=== PATIENT | female | born 1965 | race Caucasian/White ===

== ENCOUNTER 2021-09-25 15:28 | Emergency (ER) | payer MEDICARE, MEDICAID, SELFPAY | END 2021-09-25 17:24 | disposition left against medical advice (07) | LOC: HO.ED 16:07 | PROVIDERS: Emergency Provider Emergency Medicine; PCP Internal Medicine | DX: R51.9 Headache, unspecified (principal); M54.2 Cervicalgia ==

== ENCOUNTER 2021-09-25 17:26 | Emergency (ER) | payer OTHER, SELFPAY ==
[2021-09-25 17:30] VITALS: BP 179/84; PULSE 86; RESP 19; TEMP 36.6; O2SAT 99; BMI 34.3
--- NOTE | 2021-09-25 21:40 | ED.NECK ---
HPI - Neck Pain/Injury General Chief Complaint: Neck Pain/Injury Stated Complaint: pain in neck/headaches for 3 days Time Seen by Provider: 09/25/21 21:33 Source: patient Mode of arrival: ambulatory Limitations: no limitations History of Present Illness HPI Narrative: Patient comes to the emergency room complaining of pain on the right side of the neck lateral aspect. Patient states she woke up with pain, throughout the next few days, the pain has been getting worse, patient states that if he moved it hurts a lot. Patient states she does not have headache, but when she moves her neck, hurts the right side of the neck to the shoulder to the upper back. Denies fever chills. Related Data Previous Rx's Medication Instructions Recorded cyclobenzaprine 10 mg tablet 10 mg PO TID PRN #10 tab 09/25/21 Allergies Allergy/AdvReac Type Severity Reaction Status Date / Time No Known Allergies Allergy Unknown Unverified 04/02/20 15:57 Review of Systems Review of Systems: Constitutional : No Weight loss, No Fever, No Chills, No Night Sweats, No Fatigue, No Malaise ENT/Mouth : No Hearing loss, No Ear Pain, No Nasal Congestion, No Sinus Pain, No Hoarseness, No sore throat, No Rhinorrhea, No Swallowing Difficulty Eyes: No Eye Pain, No Swelling, No Redness, No Foreign Body, No Discharge, No Vision Changes Cardiovascular : No Chest Pain, No SOB, No Dyspnea on Exertion, No Orthopnea, No Edema, No Palpitations Respiratory : No Cough, No Sputum, No Wheezing, No Smoke Exposure, No Dyspnea Gastrointestinal : No Nausea, No Vomiting, No Diarrhea, No Constipation, No abdominal Pain, No Hematochezia, No Melena Genitourinary : no irregular bleeding, No Dysuria, No Urinary Frequency, No Hematuria, No Urinary Incontinence, No Urgency, No Flank Pain, No Urinary Flow Changes, No Hesitancy Musculoskeletal : No joint pain, complaining of right-sided neck pain Skin : No Skin Lesions, No rash Neuro : No Weakness, No Numbness, No Paresthesias, No Loss of Consciousness, No Dizziness, No Headache Psych : No Anxiety/Panic, No Depression, No SI/HI/AH/VH, No Social Issues, Heme/Lymph: No Bruising, No Bleeding,No Lymphadenopathy Endocrine : No Polyuria, No Polydipsia, No Temperature Intolerance PMFSH Past Medical History Medical History High cholesterol Kidney stones Pacemaker Social History Social History Advance Directives: No Advance Directives Information Provided: Yes Patient : No Physical Exam Vital Signs: Vital Signs: Last Vital Signs Temp 98 F 09/25/21 17:30 Pulse 86 09/25/21 17:30 Resp 19 09/25/21 17:30 BP 179/84 H 09/25/21 17:30 Pulse Ox 99 09/25/21 17:30 BMI result Body Mass Index 34.3 Const: Other: Appearance: Alert. Oriented X3. No acute distress. Eyes: Pupils equal, round and reactive to light. ENT: Pharynx normal. Neck: No cervical spine tenderness, no palpable step-offs. Patient is able to flex and extend the neck. Patient is unable to turn her neck towards the right. Pain to palpation over the sternocleidomastoid muscle CVS: Normal heart rate and rhythm. Pulses normal. Normal S1 and S2 Respiratory: No respiratory distress. Breath sounds normal. No Wheezing. No rales Abdomen: Soft and nontender. No rigidity. No distention. Skin: Skin warm and dry. Normal skin color. Normal skin turgor. Extremities: No lower extremity edema. No Lacerations. No Rash Neuro: Oriented X 3. No motor deficit. No sensory deficit. Moving all extermities. No slurred speech. CN 2 through 12 grossly intact Course Course Course Narrative: Physical exam of the patient, patient likely has torticollis. Patient has no meningeal signs, meningitis is not suspected. Patient was given 1 dose of IM Toradol and p.o. Valium. Patient will follow-up with her primary care physician Discharge Plan Discharge Clinical Impression: Acute torticollis Patient Disposition: Home, Self-Care Instructions: Spasmodic Torticollis (ED) Additional Instructions: Please follow-up with your primary care physician tomorrow. If you have any worsening or new symptoms, please return to the emergency room or call 911 Prescriptions: New cyclobenzaprine 10 mg tablet 10 mg PO TID PRN (Reason: muscle spasm) Qty: 10 0RF
[2021-09-25] MEDS: Ketorolac Tromethamine 60 MG/2 ML VIAL IM (22:11)
[2021-09-25] MEDS: diazePAM 5 MG TABLET PO (22:11)
== END 2021-09-25 22:33 | disposition home or self-care (01) ==
PROVIDERS: Emergency Provider Emergency Medicine
DX: M43.6 Torticollis (principal); M54.2 Cervicalgia; E78.5 Hyperlipidemia, unspecified; Z95.0 Presence of cardiac pacemaker
CPT/HCPCS: 96372; 99284; J1885

== ENCOUNTER 2022-09-06 20:28 | Emergency (ER) | payer OTHER, SELFPAY ==
[2022-09-06 20:36] VITALS: BP 118/76; PULSE 83; O2SAT 99
[2022-09-06 20:39] VITALS: BP 128/81; PULSE 80; RESP 18; TEMP 36.7; O2SAT 100; BMI 32.5
--- NOTE | 2022-09-06 21:48 | ED_ITS ---
HPI - Abdominal Pain General Chief Complaint: Abdominal Pain Stated Complaint: Stomach pain Time Seen by Provider: 09/06/22 21:32 Mode of arrival: ambulatory Limitations: no limitations History of Present Illness HPI narrative: Patient with no significant past medical history comes here with acute onset of nausea vomiting diarrhea since 15:00 today patient vomited more than 10 times and number of watery diarrhea, no history of any antibiotic or bad food intake no recent travel no fever no chills Related Data Previous Rx's Medication Instructions Recorded cyclobenzaprine 10 mg tablet 10 mg PO TID PRN muscle spasm #10 09/25/21 tabs loperamide 2 mg tablet (Imodium 2 mg PO Q6H PRN loose stool #14 09/07/22 A-D) tabs ondansetron 4 mg disintegrating 4 mg PO Q6-8H PRN nausea and 09/07/22 tablet vomiting #10 tabs Allergies Allergy/AdvReac Type Severity Reaction Status Date / Time No Known Allergies Allergy Unknown Unverified 04/02/20 15:57 Review of Systems Review of Systems Yes all other systems are reviewed and are negative [facility] Past Medical History Medical History High cholesterol Kidney stones Pacemaker Social History Social History Advance Directives: No Advance Directives Information Provided: Yes Physical Exam ED Vital Signs: Vital Signs - 24 hr 09/06/22 20:39 09/06/22 23:59 Temperature 98.0 F 97.6 F Pulse Rate 80 85 Respiratory Rate 18 17 Blood Pressure 128/81 138/91 H Pulse Oximetry 100 95 Oxygen Delivery Method Room Air BMI result Body Mass Index 32.5 Appearance: Alert. Oriented X3. No acute distress. Eyes: No pallor/icterus ENT: Pharynx normal. Oral Mucosa moist Neck: Normal inspection. Neck supple. CVS: Normal heart rate and rhythm. Pulses normal. Respiratory: No respiratory distress. Equal air entry bilateral, no wheezing/rales/rhonchi Abdomen: Soft mild upper abdominal tenderness++ Bowel sounds are present, no mass palpable, no CVA tenderness Skin: Skin warm and dry. Normal skin color. Normal skin turgor. Extremities: No lower extremity edema. No calf tenderness Neuro: Oriented X 3. No motor deficit. No sensory deficit. Medical Decision Making Medical Decision Making MDM Narrative: Patient with gastroenteritis likely viral stable labs able to take p.o. fluids after IV fluids no bowel movement in the ER discharge patient home Lab Data [facility] Lab Attestation statement: I reviewed the patient's lab results. 09/06/22 22:15 09/06/22 22:15 Labs: Lab Results 09/06/22 09/06/22 Range/Units 22:15 22:15 WBC 13.1 H (4.8-10.8) X10*3/uL RBC 5.68 H (4.20-5.50) X10*6/uL Hgb 15.5 (12.0-16.0) g/dl Hct 46.5 (37.0-47.0) % MCV 81.9 (80.0-98.0) fL MCH 27.3 (27.0-33.0) pg MCHC 33.3 (31.0-35.0) g/dl RDW 13.2 (11.0-16.0) % Plt Count 271 (160-400) X10*3/uL MPV 10.6 (9.4-12.3) fL Immature Gran % (Auto) 0.2 (0.0-0.4) % Neut % (Auto) 89.7 H (45-73) % Lymph % (Auto) 4.1 L (20-40) % [place] % (Auto) 5.6 (2-11) % Eos % (Auto) 0.1 (0-4) % Baso % (Auto) 0.3 (0-2) % Lymph # (Auto) 0.5 L (1.2-4.9) X10*3/uL [place] # (Auto) 0.7 (0.1-1.2) X10*3/uL Eos # (Auto) 0.0 (0.0-0.4) X10*3/uL Baso # (Auto) 0.0 (0.0-0.2) X10*3/uL Abs Immat Gran (auto) 0.03 (0.00-0.03) X10*3/uL Absolute Neuts (auto) 11.8 H (2.0-8.3) x10*3/uL Absolute Nucleated RBC 0.000 (0.0-0.012) X10*3/uL Nucleated RBC % (auto) 0.0 (0.0-0.2) /100WBC Sodium 141 (135-145) mmol/L Potassium 3.6 (3.3-5.1) mmol/L Chloride 107 (96-108) mmol/L Carbon Dioxide 21 L (22-29) mmol/L Anion Gap 17 (12-20) BUN 16 (9-16) mg/dL Creatinine 0.81 (0.5-1.4) mg/dL Estim Creat Clear Calc 71.3 Estimated GFR > 60 Random Glucose 144 H (60-115) mg/dL Calcium 9.9 (8.4-10.2) mg/dL Total Bilirubin 1.5 H (0.0-1.0) mg/dL AST 23 (5-31) U/L ALT 32 H (0-31) U/L Alkaline Phosphatase 121 H (39-117) U/L Total Protein 8.2 H (6.5-8.0) g/dL Albumin 4.9 (3.5-5.0) g/dL Lipase 18 (8-78) U/L Medications Administered Discontinued Medications Generic Name Dose Route Start Last Admin Trade Name Freq PRN Reason Stop Dose Admin Sodium Chloride 1,000 mls @ 999 mls/hr 09/06/22 21:49 09/06/22 23:59 Ns IV 09/06/22 22:49 Infused .Q1H1M ONE Infusion Loperamide HCl 4 mg 09/07/22 00:20 09/07/22 00:23 Loperamide Hcl 2 Mg Capsule PO 09/07/22 00:21 4 mg ONCE ONE Administration Ondansetron HCl 4 mg 09/06/22 21:49 09/06/22 22:31 Ondansetron Hcl 4 Mg/2 Ml Vial IVPUSH 09/06/22 21:50 4 mg ONCE ONE Administration Discharge Plan Discharge Clinical Impression: Gastroenteritis Patient Disposition: Home, Self-Care Instructions: Gastroenteritis (ED) Additional Instructions: Drink plenty of fluids Medicine for nausea every 4-6 hours as needed Imodium for severe diarrhea Follow with PCP if not better Prescriptions: New ondansetron 4 mg tablet,disintegrating 4 mg PO Q6-8H PRN (Reason: nausea and vomiting) Qty: 10 0RF loperamide [Imodium A-D] 2 mg tablet 2 mg PO Q6H PRN (Reason: loose stool) Qty: 14 0RF No Action cyclobenzaprine 10 mg tablet 10 mg PO TID PRN (Reason: muscle spasm) Qty: 10 0RF
[2022-09-06 22:29] LABS: MANUAL DIFF FLAG NO
[2022-09-06 22:30] LABS: Basophils Percent Auto 0.3 % (0-2); Eosinophils Percent Auto 0.1 % (0-4); Hematocrit 46.5 % (37.0-47.0); Hemoglobin 15.5 g/dl (12.0-16.0); Imm Gran Abs Auto 0.03 X10*3/uL (0.00-0.03); Imm Gran Pct Auto 0.2 % (0.0-0.4); Lymphocytes Absolute Auto 0.5 X10*3/uL (1.2-4.9); Lymphocytes Percent Auto 4.1 % (20-40); Mean Corpuscular HGB Conc 33.3 g/dl (31.0-35.0); Mean Corpuscular Hemoglobin 27.3 pg (27.0-33.0); Mean Corpuscular Volume 81.9 fL (80.0-98.0); Mean Platelet Volume 10.6 fL (9.4-12.3); Monocytes Absolute Auto 0.7 X10*3/uL (0.1-1.2); Monocytes Percent Auto 5.6 % (2-11); Neutrophils Absolute Auto 11.8 x10*3/uL (2.0-8.3); Neutrophils Percent Auto 89.7 % (45-73); Platelet Count 271 X10*3/uL (160-400); Red Blood Count 5.68 X10*6/uL (4.20-5.50); Red Cell Distribution Width 13.2 % (11.0-16.0); White Blood Count 13.1 X10*3/uL (4.8-10.8)
[2022-09-06] MEDS: ondansetron HCL 4 MG/2 ML VIAL IVPUSH (22:31)
[2022-09-06] MEDS: 0.9 % Sodium Chloride 1,000 ML 999 ML IV (22:31)
[2022-09-06 22:59] LABS: Alanine Aminotransferase 32 U/L (0-31); Albumin Level 4.9 g/dL (3.5-5.0); Alkaline Phosphatase 121 U/L (39-117); Anion Gap 17 (12-20); Aspartate Amino Transferase 23 U/L (5-31); Bilirubin Total 1.5 mg/dL (0.0-1.0); Blood Urea Nitrogen 16 mg/dL (9-16); Calcium 9.9 mg/dL (8.4-10.2); Carbon Dioxide 21 mmol/L (22-29); Chloride 107 mmol/L (96-108); Creatinine Clr Calc Pharmacy 71.3; Estimated Glomerular Filt Rate > 60; Glucose Random 144 mg/dL (60-115); Lipase 18 U/L (8-78); Potassium 3.6 mmol/L (3.3-5.1); Sodium 141 mmol/L (135-145); Total Protein 8.2 g/dL (6.5-8.0)
[2022-09-06 23:59] VITALS: BP 138/91; PULSE 85; RESP 17; TEMP 36.4; O2SAT 95
--- NOTE | 2022-09-06 23:59 | MHC.EDTECH ---
pt ambulated to the restroom and swathi no issues
[2022-09-07] MEDS: Loperamide HCl 2 MG CAPSULE 4 MG PO (00:23)
--- NOTE | 2022-09-07 00:35 | PC.NURSE ---
Pt. reports feeling much better after 1L IVF and zofran. PT. PO challenged with saltines and magda jian and tolerated well. Pt. also given immodium per MAR. Pt. to d/c home.
== END 2022-09-07 00:38 | disposition home or self-care (01) ==
PROVIDERS: Emergency Provider Internal Medicine; PCP Internal Medicine
DX: K52.9 Noninfective gastroenteritis and colitis, unspecified (principal); E78.5 Hyperlipidemia, unspecified; Z95.0 Presence of cardiac pacemaker
CPT/HCPCS: 36415; 80053; 83690; 85025; 96360; 96374; 99284; J2405

== ENCOUNTER 2023-02-01 08:36 | Day surgery (SDC) | payer OTHER, SELFPAY ==
[2023-02-01] VITALS (14 sets, daily range): BP systolic 87–142; BP diastolic 35–80; PULSE 59–72; RESP 15–20; TEMP 35.8–37.2; O2SAT 97–100; BMI 32.4
--- NOTE | 2023-02-01 | ECG_ITS ---
Test Reason : Ho cardiac disease peop Blood Pressure : / mmHG Vent. Rate : 062 BPM Atrial Rate : 062 BPM P-R Int : 118 ms QRS Dur : 154 ms QT Int : 572 ms P-R-T Axes : 048 -32 118 degrees QTc Int : 580 ms Atrial-sensed ventricular-paced rhythm with occasional AV dual-paced complexes Abnormal ECG When compared to the previous EKG of V paced rhythm present Referred By: Sakshi Mujica Electronically Signed By:Ad Desai
--- NOTE | ~2023-02-01 | CT_ITS ---
EXAMINATION: CT ABDOMEN AND PELVIS WITHOUT CONTRAST CLINICAL INFORMATION: Right flank pain with question of stone COMPARISON: CT abdomen pelvis 07/25/2018 TECHNIQUE: Multidetector volumetric imaging was performed from the superior aspect of the liver through the pubic symphysis. Sagittal and coronal reformatted images were obtained on the technologist's workstation. This CT examination was performed using dose optimization techniques as appropriate, variously including the following: *Automated exposure control *Adjustment of mA and/or kV according to patient size (this includes techniques or standardized protocols for targeted exams where dose is matched to indication/reason for exam; i.e. extremities or head) *Use of iterative reconstruction technique DLP: 474 mGy-cm FINDINGS: LUNG BASES: A multilead pacemaker is present. The heart size is normal. No infiltrates, effusions or lung masses are seen. The visualized lung bases are unremarkable. LIVER, GALLBLADDER, AND BILIARY TREE: The liver is prominent in size at 17.5 cm in cephalocaudad dimension but normal in shape and attenuation. No focal hepatic lesion or biliary ductal dilatation is present. The gallbladder is unremarkable with no evidence of radiopaque gallstones, gallbladder wall thickening, or obvious pericholecystic inflammatory changes. PANCREAS: Unremarkable. SPLEEN: Unremarkable. ADRENAL GLANDS: Unremarkable. KIDNEYS AND URETERS: Right : Right-sided nephrolithiasis is present with at least 4 nonobstructing intrarenal calculi present the largest measuring 6 mm. Stone burden in size appears increased when compared to 2019. No right renal masses or hydronephrosis is seen. No right ureteral dilatation is seen and no convincing evidence of ureteral stone is present. There is a tiny punctate calcifications seen near the vagina (2:68) which is not felt to be within the ureter. Left : There is a 5 mm stone present at the left ureteropelvic junction without any significant associated hydronephrosis. There are a few tiny punctate nonobstructing intrarenal calculi present on the left. Again noted is a benign 4.6 cm Bosniak class I cyst which needs no additional imaging or follow-up. No solid renal masses. The left ureter is nondilated. BLADDER: Unremarkable. GASTROINTESTINAL TRACT: There is colonic diverticulosis without diverticulitis. The small and large bowel are unremarkable. The appendix is unremarkable. ABDOMINAL WALL: No significant hernia is appreciated. Small inguinal hernias are present containing only fat. LYMPH NODES: No retroperitoneal lymphadenopathy. VASCULAR: Calcific atherosclerotic plaque present in the aorta and common iliac vessels without aneurysm. PELVIC VISCERA: Unremarkable. OSSEOUS STRUCTURES: Unremarkable. CT/CT abdomen pelvis wo IV con IMPRESSION: 1. Bilateral nephrolithiasis with a 5 mm calculus at the left ureteropelvic junction without any associated hydronephrosis. 2. Other incidental findings as described above. Fleischner guidelines were followed.
--- NOTE | ~2023-02-01 | FL_ITS ---
EXAMINATION: XR FLUOROSCOPY WITH IMAGES CLINICAL INFORMATION: Left retrograde/stent placement, left ureteral stone. COMPARISON: None available. TECHNIQUE: Fluoroscopy Supervised By: Dr. Lukas Estrella. Fluoroscopy Time: 21.2 seconds. Cumulative Dose: 7.35 mGy. DAP: None Images: 1. FINDINGS: Single AP view of the pelvis reveals right ureteral stent in place with its distal end in the bladder and minimal contrast in the right aspect of urinary bladder. Visualized bones are grossly unremarkable. FL/FL guidance in OR IMPRESSION: Fluoroscopy was provided to referring physician for a right ureteral stent placement.
[2023-02-01 09:01] LABS: Basophils Percent Auto 0.6 % (0-2); Eosinophils Absolute Auto 0.1 X10*3/uL (0.0-0.4); Eosinophils Percent Auto 1.5 % (0-4); Hemoglobin 12.5 g/dl (12.0-16.0); Imm Gran Abs Auto 0.02 X10*3/uL (0.00-0.03); Imm Gran Pct Auto 0.3 % (0.0-0.4); Lymphocytes Absolute Auto 1.7 X10*3/uL (1.2-4.9); Lymphocytes Percent Auto 24.6 % (20-40); Mean Corpuscular HGB Conc 32.9 g/dl (31.0-35.0); Mean Corpuscular Hemoglobin 27.6 pg (27.0-33.0); Mean Corpuscular Volume 83.9 fL (80.0-98.0); Mean Platelet Volume 10.4 fL (9.4-12.3); Monocytes Absolute Auto 0.5 X10*3/uL (0.1-1.2); Monocytes Percent Auto 7.9 % (2-11); Neutrophils Absolute Auto 4.4 x10*3/uL (2.0-8.3); Neutrophils Percent Auto 65.1 % (45-73); Platelet Count 232 X10*3/uL (160-400); Red Blood Count 4.53 X10*6/uL (4.20-5.50); White Blood Count 6.7 X10*3/uL (4.8-10.8)
[2023-02-01 09:02] LABS: Appearance Urine Cloudy; Color Urine Yellow; Glucose Urine UA Negative (Negative); Leukocyte Esterase Urine Negative (Negative); MANUAL DIFF FLAG NO; Nitrite Urine Negative (Negative); PH 5.5 (5.0-9.0); Specific Gravity - Urine >= 1.030 (1.005-1.025); Urine Blood Negative (Negative); Urine Ketones Trace mg/dL (Negative); Urine Protein Trace mg/dL (Neg-Trace)
[2023-02-01 09:04] LABS: Bacteria Urine 1+ (None Seen); RBC Urine 0-2 /HPF (0-2); Squamous Epithelial Cell Urine >20 /HPF (0-2); WBC Urine 0-5 /HPF (0-5)
[2023-02-01 09:26] LABS: Alanine Aminotransferase 28 U/L (0-31); Albumin Level 4.1 g/dL (3.5-5.0); Alkaline Phosphatase 100 U/L (39-117); Anion Gap 14 (12-20); Aspartate Amino Transferase 20 U/L (5-31); Bilirubin Total 0.5 mg/dL (0.0-1.0); Blood Urea Nitrogen 10 mg/dL (9-16); Calcium 9.2 mg/dL (8.4-10.2); Carbon Dioxide 24 mmol/L (22-29); Chloride 107 mmol/L (96-108); Estimated Glomerular Filt Rate > 60; Glucose Random 122 mg/dL (60-115); Potassium 3.8 mmol/L (3.3-5.1); Sodium 141 mmol/L (135-145); Total Protein 7.4 g/dL (6.5-8.0)
--- NOTE | 2023-02-01 09:32 | ED_ITS ---
HPI - General Adult General Chief complaint: Abdominal Pain Stated complaint: Kidney Stones Time Seen by Provider: 02/01/23 09:27 Source: patient Mode of arrival: ambulatory Limitations: no limitations History of Present Illness HPI narrative: Patient is a 57-year-old female with a past medical history of kidney stones a few years ago presenting today with concerns that she may have kidney stones again. Patient reports that yesterday morning she started feeling some right- sided flank pain. Patient reports that she took Tylenol and it had minimal effect. Patient reports that the pain is constant. Patient denies any urinary symptoms. Patient denies headache, vision changes, fever, chills, nausea, vomiting, numbness, tingling, urinary symptoms, abnormal vaginal discharge. Related Data Previous Rx's Medication Instructions Recorded cyclobenzaprine 10 mg tablet 10 mg PO TID PRN muscle spasm #10 09/25/21 tabs loperamide 2 mg tablet (Imodium 2 mg PO Q6H PRN loose stool #14 09/07/22 A-D) tabs ondansetron 4 mg disintegrating 4 mg PO Q6-8H PRN nausea and 09/07/22 tablet vomiting #10 tabs Allergies Allergy/AdvReac Type Severity Reaction Status Date / Time No Known Allergies Allergy Unknown Verified 02/01/23 08:43 Review of Systems Review of Systems: Constitutional : No Weight loss, No Fever, No Chills, No Fatigue, No Malaise ENT/Mouth : No sore throat, No Rhinorrhea Eyes: No Eye Pain, No Swelling, No Redness Cardiovascular : No Chest Pain, No SOB, No Dyspnea on Exertion, No Orthopnea, No Edema, No Palpitations Respiratory : No Cough, No Sputum, No Wheezing Gastrointestinal : No Nausea, No Vomiting, No Diarrhea, No Constipation, No abdominal Pain, No Hematochezia, No Melena Genitourinary : No Dysuria, No Urinary Frequency, No Hematuria, Musculoskeletal : No joint pain, No Myalgias, No Joint Swelling +back pain Skin : No Skin Lesions, No rash Neuro : No Weakness, No Numbness, No Dizziness, No Headache All other systems reviewed and are negative Yes all other systems are reviewed and are negative PMFSH Past Medical History Attestation statement: The following information was validated with the patient. Source: old records reviewed and nursing notes reviewed Medical History High cholesterol Kidney stones Pacemaker Social History Social History Alcohol intake: never Smoked in Last 30 Days: No Use of substances other than those prescribed or required for medical reasons: No Advance Directives: No Advance Directives Information Provided: No Physical Exam ED Vital Signs: Vital Signs - 24 hr 02/01/23 08:40 02/01/23 11:38 02/01/23 15:03 Temperature 98.9 F 97.9 F Pulse Rate 61 59 Respiratory Rate 15 16 16 Blood Pressure 138/80 142/78 H Pulse Oximetry 99 99 Oxygen Delivery Method Room Air Room Air BMI result Body Mass Index 32.4 vss Appearance: Alert.? Oriented X3.? No acute distress.? Head: Normocephalic, atraumatic, no step-offs or deformities Eyes: Pupils equal, round and reactive to light.? Neck: Normal inspection.? Neck supple.? CVS: Normal heart rate and rhythm.? Pulses normal.? Respiratory: No respiratory distress.? Breath sounds normal.? Abdomen: Soft and nontender.? Skin: Skin warm and dry.? Normal skin color.? Normal skin turgor.? Extremities: No lower extremity edema.? No calf ttp. 5/5 strength to bilateral upper and lower extremities Back: No midline tenderness, no C-spine tenderness, full range of motion, + right sided CVA tenderness, +right sided flank ttp Neuro: Oriented X 3.? No motor deficit.? No sensory deficit. CN 2-12 intact Course Reevaluation(s) Reevaluation #1: CBC within normal limits. Chemistry unremarkable. UA clean. Bilateral 5 mm stones nonobstructing no hydronephrosis noted, urology consulted which will come down to see patient. Time: 11:00 Reevaluation #2: Patient's pain well controlled still waiting for urology to see patient. Time: 14:20 Reevaluation #3: Urology reviewed the scans the stone appears to be obstructing, they will admit to their service into a stent. Patient aware. At this time will admit. Time: 15:09 Medications Administered Discontinued Medications Generic Name Dose Route Start Last Admin Trade Name Freq PRN Reason Stop Dose Admin Sodium Chloride 1,000 mls @ 999 mls/hr 02/01/23 09:45 02/01/23 11:17 Ns IV 02/01/23 10:45 Infused .Q1H1M TESSY Infusion Ketorolac Tromethamine 30 mg 02/01/23 09:45 02/01/23 09:57 Ketorolac Tromethamine 15 Mg/Ml Vial IVPUSH 02/01/23 09:46 30 mg ONCE ONE Administration Morphine Sulfate 4 mg 02/01/23 14:20 02/01/23 15:03 Morphine Sulfate 4 Mg/Ml Cartridge IVPUSH 02/01/23 14:21 4 mg ONCE ONE Administration Protocol Prednisone 20 mg 02/01/23 10:54 02/01/23 11:36 Prednisone 20 Mg Tablet PO 02/01/23 10:55 20 mg ONCE ONE Administration Tamsulosin HCl 0.4 mg 02/01/23 10:54 02/01/23 11:36 Tamsulosin Hcl 0.4 Mg Capsule PO 02/01/23 10:55 0.4 mg ONCE ONE Administration Medical Decision Making Medical Decision Making [facility] Narrative: 0935 57-year-old female presenting with right-sided flank pain. Physical exam pertinent for right-sided CVA tenderness and right-sided flank tenderness to palpation Likely kidney stones. Will rule out pyelonephritis, sciatica, UTI, lumbago. No signs of cauda equina or cord compression at this time. No red flag symptoms. Plan: labs, imaging Differential Diagnosis Differential Diagnoses: The differential diagnosis associated with the pre sentation includes Likely kidney stones. Will rule out pyelonephritis, sciatica, UTI, lumbago. No signs of cauda equina or cord compression at this time. No red flag symptoms. Admission/Observation Consideration of admission/observation: Escalation of care including admission/observation considered Not likely Lab Data [facility] Lab Attestation statement: I reviewed the patient's lab results. 02/01/23 08:54 02/01/23 08:54 Labs: Lab Results 02/01/23 02/01/23 02/01/23 Range/Units 08:54 08:54 08:54 WBC 6.7 (4.8-10.8) X10*3/uL RBC 4.53 D (4.20-5.50) X10*6/uL Hgb 12.5 (12.0-16.0) g/dl Hct 38.0 (37.0-47.0) % MCV 83.9 (80.0-98.0) fL MCH 27.6 (27.0-33.0) pg MCHC 32.9 (31.0-35.0) g/dl RDW 13.0 (11.0-16.0) % Plt Count 232 (160-400) X10*3/uL MPV 10.4 (9.4-12.3) fL Immature Gran % (Auto) 0.3 (0.0-0.4) % Neut % (Auto) 65.1 (45-73) % Lymph % (Auto) 24.6 (20-40) % [place] % (Auto) 7.9 (2-11) % Eos % (Auto) 1.5 (0-4) % Baso % (Auto) 0.6 (0-2) % Lymph # (Auto) 1.7 (1.2-4.9) X10*3/uL [place] # (Auto) 0.5 (0.1-1.2) X10*3/uL Eos # (Auto) 0.1 (0.0-0.4) X10*3/uL Baso # (Auto) 0.0 (0.0-0.2) X10*3/uL Abs Immat Gran (auto) 0.02 (0.00-0.03) X10*3/uL Absolute Neuts (auto) 4.4 (2.0-8.3) x10*3/uL Absolute Nucleated RBC 0.000 (0.0-0.012) X10*3/uL Nucleated RBC % (auto) 0.0 (0.0-0.2) /100WBC Sodium 141 (135-145) mmol/L Potassium 3.8 (3.3-5.1) mmol/L Chloride 107 (96-108) mmol/L Carbon Dioxide 24 (22-29) mmol/L Anion Gap 14 (12-20) BUN 10 (9-16) mg/dL Creatinine 0.80 (0.5-1.4) mg/dL Estim Creat Clear Calc 72.0 Estimated GFR > 60 Random Glucose 122 H (60-115) mg/dL Calcium 9.2 D (8.4-10.2) mg/dL Total Bilirubin 0.5 (0.0-1.0) mg/dL AST 20 (5-31) U/L ALT 28 (0-31) U/L Alkaline Phosphatase 100 (39-117) U/L Total Protein 7.4 (6.5-8.0) g/dL Albumin 4.1 (3.5-5.0) g/dL Urine Color Yellow Urine Appearance Cloudy Urine pH 5.5 (5.0-9.0) Ur Specific [employer] >= 1.030 H (1.005-1.025) Urine Protein Trace (Neg-Trace) mg/dL Urine Glucose (UA) Negative (Negative) mg/dL Urine Ketones Trace (Negative) mg/dL Urine Blood Negative (Negative) Urine Nitrite Negative (Negative) Ur Leukocyte Esterase Negative (Negative) Urine RBC 0-2 (0-2) /HPF Urine WBC 0-5 (0-5) /HPF Ur Squamous Epith Cells >20 (0-2) /HPF Urine Bacteria 1+ (None Seen) Hyaline Casts 3-5 (0-2) /LPF Independent Interpretation I performed an independent interpretation of an: CT Scan (CT/CT abdomen pelvis wo IV con IMPRESSION: 1. Bilateral nephrolithiasis with a 5 mm calculus at the left ureteropelvic junction without any associated hydronephrosis. 2. Other incidental findings as described above. Fleischner guidelines were followed.) Radiology Impression Discussion of test interpretation with radiology: I have reviewed the radiologist's reading. Core Measures AMI core measures followed: Yes Measure exclusions: not indicated Critical Care Time Critical Care Time Critical Care Time: Yes Total Critical Care Time: 35 Attestation: I attest to this time spent taking care of the patient, obtaining history, physical, reviewing labs, imaging, speaking to my attending, speaking to specialist. Discharge Plan Discharge Clinical Impression: Bilateral kidney stones Patient Disposition: Still a Patient Prescriptions: No Action cyclobenzaprine 10 mg tablet 10 mg PO TID PRN (Reason: muscle spasm) Qty: 10 0RF ondansetron 4 mg tablet,disintegrating 4 mg PO Q6-8H PRN (Reason: nausea and vomiting) Qty: 10 0RF loperamide [Imodium A-D] 2 mg tablet 2 mg PO Q6H PRN (Reason: loose stool) Qty: 14 0RF
[2023-02-01] MEDS: 0.9 % Sodium Chloride 1,000 ML 999 ML IV ×2 (09:56→16:38)
[2023-02-01] MEDS: Ketorolac Tromethamine 15 MG/ML VIAL 30 MG IVPUSH (09:57)
[2023-02-01] MEDS: Tamsulosin HCL 0.4 MG CAPSULE PO (11:36)
[2023-02-01] MEDS: predniSONE 20 MG TABLET PO (11:36)
[2023-02-01] MEDS: Morphine Sulfate 4 MG/ML CARTRIDGE IVPUSH (15:03)
--- NOTE | 2023-02-01 15:41 | PHA.MEDREC ---
Pharmacy Consult ? Medication Reconciliation Pharmacy has completed the medication reconciliation. Pt no longer uses flovent
--- NOTE | 2023-02-01 16:36 | HO.ANESPROP2 ---
HPI - Anesthesia Eval Consult details Narrative: 57 yo female patient for Cysto, Retro and stent placement Patient with pacemaker. Placed @ [facility] 02/2019. ?Indication. Follows up with bundle tier and labeler Dr Wagoner at [facility]. Unsure when last seen. States seeing in April: EF 35-40%Mild Concentric LVH. Impaired relaxation. LA septal aneurysm. No more recent cardiac studies PMFSH Active Problems Active Problems: All Active Problems (Updated 02/01/23 @ 13:45 by SERENITY Weller) Bilateral kidney stones (Acute) Past Medical History Medical History (Updated 02/01/23 @ 17:26 by Geno Chin MD) Anxiety and depression Asthma Bilateral nephrolithiasis H/O chest pain High cholesterol LBBB (left bundle branch block) Pacemaker Family History Family history of problems with anesthesia: No Surgical History Surgical History (Updated 02/01/23 @ 16:53 by Geno Chin MD) H/O hydronephrosis H/O lithotripsy H/O: History of bilateral tubal ligation History of endometrial ablation History of hysteroscopy History of lithotripsy History of Problems with Anesthesia: No Social History Social History Alcohol intake: never Smoked in Last 30 Days: No Use of substances other than those prescribed or required for medical reasons: No Advance Directives: No Advance Directives Information Provided: No Meds Allergies Allergy/AdvReac Type Severity Reaction Status Date / Time No Known Allergies Allergy Unknown Verified 02/01/23 08:43 Active Medications: Current Medications Pharmacy Consult (Consult Rx Perform Med Rec) 1 each MISCELLANE ONCE PRN PRN Reason: Consult order Home Medications Medication Instructions Recorded Confirmed Last Taken Type albuterol sulfate 90 mcg/actuation 2 puff inhalation Q4H PRN wheezing 02/01/23 02/01/23 01/30/23 History aerosol inhaler atorvastatin 20 mg tablet 20 mg PO BEDTIME 02/01/23 02/01/23 01/31/23 History fluoxetine 20 mg capsule 40 mg PO BEDTIME 02/01/23 02/01/23 01/31/23 History hydroxyzine HCl 25 mg tablet 25 mg PO BID PRN anxiety 02/01/23 02/01/23 01/31/23 History metoprolol succinate 100 mg 100 mg PO DAILY 02/01/23 02/01/23 02/01/23 History tablet,extended release 24 hr sacubitril 49 mg-valsartan 51 mg 1 tab PO BID 02/01/23 02/01/23 02/01/23 History tablet (Entresto) spironolactone 25 mg tablet 25 mg PO DAILY 02/01/23 02/01/23 02/01/23 History zolpidem 5 mg tablet 5 mg PO BEDTIME PRN Sleep 02/01/23 02/01/23 01/31/23 History Exam Exam Date and Time: February 01, 2023 1636 Height,Weight and Vital Signs: Height 5 ft Weight 75.296 kg Last Vital Signs Temp 97.9 F 02/01/23 11:38 Pulse 59 02/01/23 11:38 Resp 16 02/01/23 15:03 BP 142/78 H 02/01/23 11:38 Pulse Ox 99 02/01/23 11:38 O2 Del Method Room Air 02/01/23 11:38 Vital Signs Temp Pulse Resp BP Pulse Ox O2 Del Method 02/01/23 16:50 96.5 F L 60 16 120/65 97 Room Air 02/01/23 15:03 16 02/01/23 11:38 97.9 F 59 16 142/78 H 99 Room Air 02/01/23 08:40 98.9 F 61 15 138/80 99 Room Air Pertinent Lab Results Pertinent Lab Results: Laboratory Tests 02/01/23 02/01/23 02/01/23 08:54 08:54 08:54 WBC 6.7 RBC 4.53 D Hgb 12.5 Hct 38.0 MCV 83.9 MCH 27.6 MCHC 32.9 RDW 13.0 Plt Count 232 MPV 10.4 Immature Gran % (Auto) 0.3 Neut % (Auto) 65.1 Lymph % (Auto) 24.6 [place] % (Auto) 7.9 Eos % (Auto) 1.5 Baso % (Auto) 0.6 Lymph # (Auto) 1.7 [place] # (Auto) 0.5 Eos # (Auto) 0.1 Baso # (Auto) 0.0 Abs Immat Gran (auto) 0.02 Absolute Neuts (auto) 4.4 Absolute Nucleated RBC 0.000 Nucleated RBC % (auto) 0.0 Sodium 141 Potassium 3.8 Chloride 107 Carbon Dioxide 24 Anion Gap 14 BUN 10 Creatinine 0.80 Estim Creat Clear Calc 72.0 Estimated GFR > 60 Random Glucose 122 H Calcium 9.2 D Total Bilirubin 0.5 AST 20 ALT 28 Alkaline Phosphatase 100 Total Protein 7.4 Albumin 4.1 Urine Color Yellow Urine Appearance Cloudy Urine pH 5.5 Ur Specific [place] >= 1.030 H Urine Protein Trace Urine Glucose (UA) Negative Urine Ketones Trace Urine Blood Negative Urine Nitrite Negative Ur Leukocyte Esterase Negative Urine RBC 0-2 Urine WBC 0-5 Ur Squamous Epith Cells >20 Urine Bacteria 1+ Hyaline Casts 3-5 Airway Mallampati Class: II TM Dist: >3cm Neck ROM: Full Loose/Missing/Broken Teeth: Yes (Some missing teeth. denies broken or loose teeth) Heart: RRR. V Paced on EKG Lungs: CTAB Assessment and Plan Assessment Anesthesia Assessment: Anesthesia Plan Discussed and Chart Reviewed Final Anesthetic Review Family History of Problems with Anesthesia: No History of Problems with Anesthesia: No NPO: Yes ASA Class: IV and Emergency Final Preanesthetic Review: No Changes in Pt Med Stat, Meds/Allgs Chart Reviewed, Consent Obtained/Reviewed and Anes Risks/Benef Reviewed Patient Risk: High Procedure Risk: Intermediate Assessment/Block/Sedation in SS: Assess/Block/Sedation-SS Anesthetic Plan Anesthetic Plan: GA Disposition: Standard PACU and Inp. Admit - Standard Bed
[2023-02-01] MEDS: ondansetron HCL 4 MG/2 ML VIAL IVPUSH (16:38)
[2023-02-01] MEDS: Metoclopramide HCl 10 MG/2 ML VIAL IVPUSH (17:04)
--- NOTE | 2023-02-01 17:22 | P.CNUR_ITS ---
History of Present Illness Consult details Consult date: 02/01/23 Narrative: CC: Right-sided flank pain 57-year-old female Recurrent stone former Right-sided flank pain starting yesterday morning Minimal impact with oral Tylenol or Advil Constant pain with nausea and vomiting Creatinine 0.8, calcium 9.2 CT scan with bilateral stones: Small stone distal left ureter, 4 stones on right side up to 6 mm She reports pain on the right side Recommend cystoscopy, right retrograde, right stent placement Review of Systems Constitutional: Constitutional: Reports as per HPI and Reports no additional constitutional complaints Cardiovascular: Cardiovascular: Reports as per HPI and Reports no additional cardiovascular complaints Respiratory: Respiratory: Reports as per HPI and Reports no additional respiratory complaints Gastrointestinal: Gastrointestinal: Reports as per HPI and Reports no additional gastrointestinal complaints Genitourinary: Genitourinary: Reports as per HPI Musculoskeletal: Musculoskeletal: Reports no additional musculoskeletal complaints and Reports as per HPI Neurologic: Reports system reviewed and no additional complaints, except as documented and Reports as per HPI PMF Past Medical History Medical History (Updated 02/01/23 @ 16:48 by Geno Chin MD) Anxiety and depression Asthma Bilateral nephrolithiasis H/O chest pain High cholesterol LBBB (left bundle branch block) Pacemaker Surgical History Surgical History (Updated 02/01/23 @ 16:53 by Geno Chin MD) H/O hydronephrosis H/O lithotripsy H/O: History of bilateral tubal ligation History of endometrial ablation History of hysteroscopy History of lithotripsy Social History Social History Alcohol intake: never Patient Tobacco Use Status: Former Tobacco user Quit Date: 2018 Smoked in Last 30 Days: No Use of substances other than those prescribed or required for medical reasons: No Are you DNR?: No Advance Directives: No Advance Directives Information Provided: No Meds Allergies Allergy/AdvReac Type Severity Reaction Status Date / Time No Known Allergies Allergy Unknown Verified 02/01/23 08:43 Active Medications: Current Medications Albuterol Sulfate (Albuterol Sulfate (0.083%) 2.5 Mg/3 Ml Vial.Neb) 2.5 mg INHALE ONCE PRN PRN Reason: Shortness of Breath/Wheezing Lactated Ringer's (Lr) 1,000 mls @ 100 mls/hr IVCONT .Q10H [facility] Pharmacy Consult (Consult Rx Perform Med Rec) 1 each MISCELLANE ONCE PRN PRN Reason: Consult order Home Medications Medication Instructions Recorded Confirmed Last Taken Type albuterol sulfate 90 mcg/actuation 2 puff inhalation Q4H PRN wheezing 02/01/23 02/01/23 01/30/23 History aerosol inhaler atorvastatin 20 mg tablet 20 mg PO BEDTIME 02/01/23 02/01/23 01/31/23 History fluoxetine 20 mg capsule 40 mg PO BEDTIME 02/01/23 02/01/23 01/31/23 History hydroxyzine HCl 25 mg tablet 25 mg PO BID PRN anxiety 02/01/23 02/01/23 01/31/23 History metoprolol succinate 100 mg 100 mg PO DAILY 02/01/23 02/01/23 02/01/23 History tablet,extended release 24 hr sacubitril 49 mg-valsartan 51 mg 1 tab PO BID 02/01/23 02/01/23 02/01/23 History tablet (Entresto) spironolactone 25 mg tablet 25 mg PO DAILY 02/01/23 02/01/23 02/01/23 History zolpidem 5 mg tablet 5 mg PO BEDTIME PRN Sleep 02/01/23 02/01/23 01/31/23 History Physical Exam Vital Signs: Vital Signs: Last Vital Signs Temp 96.5 F L 02/01/23 16:50 Pulse 60 02/01/23 16:50 Resp 16 02/01/23 16:50 BP 120/65 02/01/23 16:50 Pulse Ox 97 02/01/23 16:50 O2 Del Method Room Air 02/01/23 16:50 BMI result Body Mass Index 32.4 Const: General: cooperative, healthy appearing, comfortable and no acute distress Orientation/consciousness: patient oriented x3 HEENT: Face and sinus: Yes normal facial exam Mouth: moist mucous membranes Neck: Neck: Yes normal visual inspection, Yes full ROM and Yes trachea midline Chest: Chest palpation & inspection: normal inspection of the chest Resp: Effort & Inspection: normal respiratory effort, able to speak in complete sentences and no respiratory distress GI: Inspection: Yes normal to inspection Back/Spine/Pelvis: Cervical Spine: normal cervical lordosis Thoracic/Lumbar Spine: thoracic and lumbar spine normal to inspection Skin: General skin exam: no rashes or lesions noted Neuro: General: patient oriented x3, tone normal and moves all extremities Extrem: General: Yes normal to inspection and Yes capillary refill normal Results Labs 02/01/23 08:54 02/01/23 08:54 Labs: Abnormal lab results 02/01/23 02/01/23 Range/Units 08:54 08:54 Random Glucose 122 H (60-115) mg/dL Ur Specific [place] >= 1.030 H (1.005-1.025) Short CBC 02/01/23 Range/Units 08:54 WBC 6.7 (4.8-10.8) X10*3/uL Hgb 12.5 (12.0-16.0) g/dl Hct 38.0 (37.0-47.0) % Plt Count 232 (160-400) X10*3/uL BMP 02/01/23 08:54 Sodium 141 Potassium 3.8 Chloride 107 Carbon Dioxide 24 BUN 10 Creatinine 0.80 Calcium 9.2 D Liver Function 02/01/23 Range/Units 08:54 Total Bilirubin 0.5 (0.0-1.0) mg/dL AST 20 (5-31) U/L ALT 28 (0-31) U/L Alkaline Phosphatase 100 (39-117) U/L Albumin 4.1 (3.5-5.0) g/dL Urine 02/01/23 Range/Units 08:54 Urine Color Yellow Urine Appearance Cloudy Urine pH 5.5 (5.0-9.0) Ur Specific [place] >= 1.030 H (1.005-1.025) Urine Protein Trace (Neg-Trace) mg/dL Urine Glucose (UA) Negative (Negative) mg/dL All other labs normal. Assessment and Plan (1) Bilateral nephrolithiasis: Status: Acute Plan Risks, benefits and alternatives to therapy were discussed. These include but are not limited to infection, bleeding, damage to local organs and tissues, need for further interventions. Anesthetic risks regarding cardiac arrhythmia, blood clots, and potential mortality were discussed. The patient understands the typical recovery time and the outpatient nature of the procedure. After consideration of these risks the patient gives full informed consent and they wish to move ahead with the procedure. Cystoscopy, right retrograde, right stent placement Time Spent With Patient Time: Total time managing care of this patient today ____ minutes. Procedures Date of Service Date of Service: 02/01/23
--- NOTE | 2023-02-01 17:25 | MHC.SHP ---
Pre-Procedural Eval Section A Date of Service: 02/01/23 The patient is an INPATIENT: No Changes since office visit: No Cold of Flu in the past 2 weeks, No New Medical Problems, No Changes in Medication and No Patient answered all questions The History & Physical has been completed within 30 days and I have reviewed it.: Yes Section B Chief Complaint: Kidney Stones Allergies: Allergies Allergy/AdvReac Type Severity Reaction Status Date / Time No Known Allergies Allergy Unknown Verified 02/01/23 08:43 Plan Diagnosis/Plan: Unchanged (Cysto, right retrograde, right stent placement) I have reviewed the history and physical and performed a pertinent physical examination on my patient. No changes have occurred unless specified. Time Spent With Patient Time: Total time managing care of this patient today ____ minutes.
--- NOTE | 2023-02-01 18:20 | W.PM.OPN ---
Operative Note Operative Note Date of Service: 02/01/23 Narrative: PreOperative Diagnosis: Right flank pain with mild hydronephrosis Post Operative Diagnosis: Above Procedure: Cystoscopy, right retrograde, right stent placement Surgeon: Dr Lukas Estrella Anesthesia: Sedation Indications for procedure: Persistent right flank pain Procedure: After informed consent was verified the patient was brought to the operating room and placed in a supine position. Anesthesia was administered per protocol. The patient was placed in modified dorsal lithotomy position and prepped and draped in a sterile fashion. A safety pause time-out was performed. Laterality of procedure and antibiotics were confirmed, appropriate imaging was available A 22 S[place] cystoscope was introduced per urethra. No abnormality was noted of urethra or bladder. Both ureteric orifices were seen in a normal position. The right ureter was cannulated with an open ended catheter and a retrograde examination was performed. Narrowing at UPJ seen . A Sensor guidewire was placed under fluoroscopy and a good coil was seen within the renal pelvis. A 6 [place] by 24 cm double J stent was advanced over the wire and up to the level of the renal pelvis under fluoroscopic and direct visualization. The stent was seen with appropriate coil within the renal pelvis and in the bladder after deployment. The patient tolerated the procedure well and was transferred in a stable condition to the recovery area. Pathology: Drains: As above
--- NOTE | 2023-02-01 18:23 | HO.ANESPROP2 ---
[facility] Active Problems Active Problems: All Active Problems (Updated 02/01/23 @ 17:26 by Geno Chin MD) LBBB (left bundle branch block) (Acute) Bilateral nephrolithiasis (Acute) Bilateral kidney stones (Acute) Past Medical History Medical History (Updated 02/01/23 @ 17:26 by Geno Chin MD) Anxiety and depression Asthma Bilateral nephrolithiasis H/O chest pain High cholesterol LBBB (left bundle branch block) Pacemaker Family History Family history of problems with anesthesia: No Surgical History Surgical History (Updated 02/01/23 @ 16:53 by Geno Chin MD) H/O hydronephrosis H/O lithotripsy H/O: History of bilateral tubal ligation History of endometrial ablation History of hysteroscopy History of lithotripsy History of Problems with Anesthesia: No Social History Social History Alcohol intake: never Patient Tobacco Use Status: Former Tobacco user Quit Date: 2018 Smoked in Last 30 Days: No Use of substances other than those prescribed or required for medical reasons: No Are you DNR?: No Advance Directives: No Advance Directives Information Provided: No Meds Allergies Allergy/AdvReac Type Severity Reaction Status Date / Time No Known Allergies Allergy Unknown Verified 02/01/23 08:43 Active Medications: Current Medications Albuterol Sulfate (Albuterol Sulfate (0.083%) 2.5 Mg/3 Ml Vial.Neb) 2.5 mg INHALE ONCE PRN PRN Reason: Shortness of Breath/Wheezing Lactated Ringer's (Lr) 1,000 mls @ 100 mls/hr IVCONT .Q10H [facility] Pharmacy Consult (Consult Rx Perform Med Rec) 1 each MISCELLANE ONCE PRN PRN Reason: Consult order Tramadol HCl (Tramadol Hcl 50 Mg Tablet) 50 mg PO Q6H PRN PRN Reason: Pain, Moderate(Pain Scale 4-6) Home Medications Medication Instructions Recorded Confirmed Last Taken Type albuterol sulfate 90 mcg/actuation 2 puff inhalation Q4H PRN wheezing 02/01/23 02/01/23 01/30/23 History aerosol inhaler atorvastatin 20 mg tablet 20 mg PO BEDTIME 02/01/23 02/01/23 01/31/23 History fluoxetine 20 mg capsule 40 mg PO BEDTIME 02/01/23 02/01/23 01/31/23 History hydroxyzine HCl 25 mg tablet 25 mg PO BID PRN anxiety 02/01/23 02/01/23 01/31/23 History metoprolol succinate 100 mg 100 mg PO DAILY 02/01/23 02/01/23 02/01/23 History tablet,extended release 24 hr sacubitril 49 mg-valsartan 51 mg 1 tab PO BID 02/01/23 02/01/23 02/01/23 History tablet (Entresto) spironolactone 25 mg tablet 25 mg PO DAILY 02/01/23 02/01/23 02/01/23 History zolpidem 5 mg tablet 5 mg PO BEDTIME PRN Sleep 02/01/23 02/01/23 01/31/23 History Exam Exam Date and Time: February 01, 20231822 Height,Weight and Vital Signs: Height 5 ft Weight 75.296 kg Last Vital Signs Temp 98.2 F 02/01/23 18:17 Pulse 64 02/01/23 18:22 Resp 18 02/01/23 18:22 BP 100/53 L 02/01/23 18:23 Pulse Ox 100 02/01/23 18:23 O2 Del Method Nasal Cannula 02/01/23 18:23 O2 Flow Rate 2 02/01/23 18:23 Pertinent Lab Results Pertinent Lab Results: Laboratory Tests 02/01/23 02/01/23 02/01/23 08:54 08:54 08:54 WBC 6.7 RBC 4.53 D Hgb 12.5 Hct 38.0 MCV 83.9 MCH 27.6 MCHC 32.9 RDW 13.0 Plt Count 232 MPV 10.4 Immature Gran % (Auto) 0.3 Neut % (Auto) 65.1 Lymph % (Auto) 24.6 [place] % (Auto) 7.9 Eos % (Auto) 1.5 Baso % (Auto) 0.6 Lymph # (Auto) 1.7 [place] # (Auto) 0.5 Eos # (Auto) 0.1 Baso # (Auto) 0.0 Abs Immat Gran (auto) 0.02 Absolute Neuts (auto) 4.4 Absolute Nucleated RBC 0.000 Nucleated RBC % (auto) 0.0 Sodium 141 Potassium 3.8 Chloride 107 Carbon Dioxide 24 Anion Gap 14 BUN 10 Creatinine 0.80 Estim Creat Clear Calc 72.0 Estimated GFR > 60 Random Glucose 122 H Calcium 9.2 D Total Bilirubin 0.5 AST 20 ALT 28 Alkaline Phosphatase 100 Total Protein 7.4 Albumin 4.1 Urine Color Yellow Urine Appearance Cloudy Urine pH 5.5 Ur Specific [place] >= 1.030 H Urine Protein Trace Urine Glucose (UA) Negative Urine Ketones Trace Urine Blood Negative Urine Nitrite Negative Ur Leukocyte Esterase Negative Urine RBC 0-2 Urine WBC 0-5 Ur Squamous Epith Cells >20 Urine Bacteria 1+ Hyaline Casts 3-5 Airway Mallampati Class: II TM Dist: >3cm Neck ROM: Full Assessment and Plan Assessment Anesthesia Assessment: Anesthesia Plan Discussed and Chart Reviewed Final Anesthetic Review Family History of Problems with Anesthesia: No History of Problems with Anesthesia: No NPO: Yes ASA Class: III and Emergency Final Preanesthetic Review: No Changes in Pt Med Stat, Meds/Allgs Chart Reviewed, Consent Obtained/Reviewed and Anes Risks/Benef Reviewed Patient Risk: Intermediate Procedure Risk: Low Anesthetic Plan Anesthetic Plan: GA Disposition: Standard PACU
[2023-02-01] MEDS: Phenazopyridine HCL 100 MG TABLET PO (18:54)
== END 2023-02-01 18:00 ==
LOC: HO.ED 02-02 04:12 → HO.SSS 02-02 07:48
PROVIDERS: Emergency Provider Emergency Medicine; PCP Internal Medicine; Visit Provider Urology
PROC: 0TJB8ZZ Inspection of Bladder, Via Natural or Artificial Opening Endoscopic (ICD-10-PCS; CPT 52000; principal; 2023-02-01 17:00)
DX: N13.30 Unspecified hydronephrosis (principal); R10.9 Unspecified abdominal pain; J45.909 Unspecified asthma, uncomplicated; Z79.899 Other long term (current) drug therapy; Z95.0 Presence of cardiac pacemaker
CPT/HCPCS: 52332; 52005; 36415; 74176; 80053; 81001; 85025; 93005; 99285; C1758; C1769; C2617; J0131; J1885; J1956; J2270; J2405; J2765; J3010; Q9967

== ENCOUNTER → 2023-02-01 09:32 | Outpatient (BNV) | payer OTHER, SELFPAY | PROVIDERS: Emergency Provider Emergency Medicine; PCP Internal Medicine; Visit Provider Urology | DX: N20.0 Calculus of kidney (principal) | CPT/HCPCS: 52332; 74420 ==

== ENCOUNTER → 2023-02-01 17:03 | Outpatient (BNV) | payer OTHER, SELFPAY | PROVIDERS: Emergency Provider Emergency Medicine; PCP Internal Medicine; Visit Provider Internal Medicine Cardiovascular Disease | DX: R94.31 Abnormal electrocardiogram [ECG] [EKG] (principal) | CPT/HCPCS: 93010 ==

== ENCOUNTER 2023-02-09 11:49 | Outpatient (AMB) | payer OTHER, SELFPAY ==
--- NOTE | 2023-02-09 11:50 | A.OFFVIS_ITS ---
Intake Intake Visit Reasons: Surgery questions Intake Note: Patient is present for Telephone Urology Med: Tamsulosin Antibiotic Allergy:None Blood Thinner: None Pharmacy: [facility] [place] Allergies No Known Allergies Allergy (Unknown, Verified 02/09/23 11:52) HPI HPI Comments History of Present Illness Details Madeline is a pleasant female. She is a patient of Dr. Parker. She is seen for the following urologic conditions - nephrolithiasis Telemedicine Evaluation 15 min Consultation [employer] [place] Video attempted Nephrolithiasis Stent placed after ER visit for right flank pain Imaging - 02/05 ?Right-sided nephrolithiasis is present with at least 4 nonobstructing intrarenal calculi present the largest measuring 6 mm. Stone burden in size appears increased when compared to 2019 Therapeutic plan - cystoscopy, right stent removal, flexible ureteroscopy with laser lithotripsy PFSH Medical History Anxiety and depression Asthma Bilateral nephrolithiasis H/O chest pain High cholesterol LBBB (left bundle branch block) Pacemaker Surgical History H/O hydronephrosis H/O lithotripsy H/O: History of bilateral tubal ligation History of endometrial ablation History of hysteroscopy History of lithotripsy Social History Alcohol intake: never Patient Tobacco Use Status: Former Tobacco user Quit Date: 2018 Review of Systems Const All systems reviewed & are unremarkable except as noted in HPI and below Reports no additional complaints Resp Reports no additional complaints GI Reports no additional complaints Reports as per HPI Musc Reports no additional complaints Physical Exam Telemedicine evaluation Appropriate responses Regular breathing rate and rhythm HEENT Head: Yes normal to inspection Ears: hearing grossly normal bilaterally Eyes General: appearance normal, both eyes and all related structures Neck Neck: Yes normal visual inspection Chest Chest palpation & inspection: normal inspection of the chest Resp Effort & Inspection: normal respiratory effort and able to speak in complete sentences Assessment & Plan Assessment & Plan (1) Bilateral nephrolithiasis: Code(s): N20.0 - Calculus of kidney Plan Ureteroscopy We discussed the nature of the decision and reasonable alternatives for performing ureteroscopy. Options such as medical therapy were discussed. Interventions include chemical dissolution, ESWL, ureteroscopy with laser lithotripsy and stent placement, PCNL. The relative uncertainties and benefits related to each alternate procedure were adequately discussed. General surgical risks including, but not limited to - pain, bleeding, infection, myocardial infarction, pulmonary embolus, deep vein thrombosis and cerebrovascular accident which may result in further hospitalization were discussed. Full disclosure of the procedure as well as all major risks, benefits and complications were discussed including but not limited to damage to the urethra, bladder and kidney infection, damage to the ureter, stent migration or malposition, scarring to the renal pelvis, remnant stone fragments, subsequent stone passage with need for secondary procedures. The overall secondary procedure rate is approximately 10-15%. The overall clearance rate is approximately 90-95%. Success of the procedure in the short-term does not necessarily guarantee that long-term success will be maintained. Suitable follow up will need to be maintained. The patient showed understanding of discussion and wishes to proceed with - cystoscopy, retrograde, ureteroscopy, possible lithotripsy/stone basketing and stent on the right side Patient Instructions: Imaging studies, laboratory and physical exam results were discussed and reviewed in detail. No major barriers to patient understanding were identified. An opportunity to ask questions regarding the treatment plan was provided. All questions were answered. The patient expressed understanding and agreement with the above treatment plan. The patient is aware they should contact our office by phone for worsening of their current condition or the appearance of new urologic symptoms. Compliance is encouraged with any medications and followup testing that is ordered. It is a privilege to participate in the urologic care of your patient. If you have any questions or concerns regarding treatment for the above conditions, or other urologic issues, please do not hesitate to contact me. The office telephone contact is [phone]. This note is constructed using voice recognition software. While every effort has been made to ensure accuracy displayer merchandise errors may have been included. Yours sincerely, Dr Lukas Estrella MD, [facility] - Urology Providers of Expert, Compassionate Care for the Genitourinary System Telehealth Telehealth Location of provider rendering services: practice address Location of patient: address on file Patient Identification confirmed using: Name, : Yes Telehealth method: video Patient verbally consented to treatment: Yes Patient verbally consented to billing insurance company: Yes Patient informed of any privacy concerns related to visit: Yes Coding Level of Care Code Tele Est Pt Level 3 (00333) Diagnoses Bilateral nephrolithiasis N20.0
== END 2023-02-09 15:13 ==
LOC: HO.HUSH 11:49
PROVIDERS: PCP Internal Medicine; Visit Provider Urology
DX: N20.0 Calculus of kidney (principal)
CPT/HCPCS: 99442

== ENCOUNTER → 2023-02-09 11:49 | Outpatient (BNVA) | payer OTHER, SELFPAY | PROVIDERS: PCP Internal Medicine; Visit Provider Urology ==

== ENCOUNTER → 2023-02-23 13:49 | Day surgery (SDC) | payer OTHER, SELFPAY ==
--- NOTE | 2023-02-22 10:34 | HO.ANESPROP2 ---
Documented by User: Lizzette Rubin NP 02/22/23 11:42 HPI - Anesthesia Eval Consult details Narrative: 57yo F for Cystoscopy, Ureteroroscopy, Retro, Laser,with poss stent exchange,flexible scope s/p cysto 01/2023 with GA-ETT 7 ICD in situ (NICMP with EF 25-30 in 2013. Now normalized EF) PMFSH Active Problems Active Problems: All Active Problems (Updated 02/01/23 @ 17:26 by Geno Chin MD) LBBB (left bundle branch block) (Acute) Bilateral nephrolithiasis (Acute) Bilateral kidney stones (Acute) Past Medical History Medical History Anxiety and depression Asthma Bilateral nephrolithiasis H/O chest pain High cholesterol ICD (implantable cardioverter-defibrillator) in place LBBB (left bundle branch block) NICM (nonischemic cardiomyopathy) Family History Family history of problems with anesthesia: No Surgical History Surgical History (Updated 02/23/23 @ 15:36 by Chelsey Lazcano RN) H/O hydronephrosis H/O lithotripsy H/O: History of bilateral tubal ligation History of endometrial ablation History of hysteroscopy History of lithotripsy Hx of cystoscopy History of Problems with Anesthesia: No Social History Social History Alcohol intake: never Patient Tobacco Use Status: Former Tobacco user Quit Date: 5 yrs ago Use of substances other than those prescribed or required for medical reasons: No Are you DNR?: No Advance Directives: No Advance Directives Information Provided: Yes Meds Allergies Allergy/AdvReac Type Severity Reaction Status Date / Time No Known Allergies Allergy Unknown Verified 02/23/23 15:36 Home Medications Medication Instructions Recorded Confirmed Last Taken Type albuterol sulfate 90 mcg/actuation 2 puff inhalation Q4H PRN wheezing 02/01/23 02/23/23 01/30/23 History aerosol inhaler atorvastatin 20 mg tablet 20 mg PO BEDTIME 02/01/23 02/23/23 01/31/23 History fluoxetine 20 mg capsule 40 mg PO BEDTIME 02/01/23 02/23/23 01/31/23 History hydroxyzine HCl 25 mg tablet 25 mg PO BID PRN anxiety 02/01/23 02/23/23 01/31/23 History metoprolol succinate 100 mg 100 mg PO DAILY 02/01/23 02/23/23 02/01/23 History tablet,extended release 24 hr sacubitril 49 mg-valsartan 51 mg 1 tab PO BID 02/01/23 02/23/23 02/23/23 06:00 History tablet (Entresto) spironolactone 25 mg tablet 25 mg PO DAILY 02/01/23 02/23/23 02/01/23 History zolpidem 5 mg tablet 5 mg PO BEDTIME PRN Sleep 02/01/23 02/23/23 01/31/23 History Exam Exam Date and Time: February 22, 2023 1034 Pertinent Lab Results Pertinent Lab Results: Laboratory Tests 02/01/23 02/01/23 08:54 08:54 WBC 6.7 Hgb 12.5 Hct 38.0 Plt Count 232 Sodium 141 Potassium 3.8 Chloride 107 Carbon Dioxide 24 BUN 10 Creatinine 0.80 Narrative Narrative: EKG 01/2023 Vent. Rate : 062 BPM ? ? Atrial Rate : 062 BPM ?? P-R Int : 118 ms? QRS Dur : 154 ms ? ? QT Int : 572 ms ? ? ? P-R-T Axes : 048 -32 118 degrees ?? QTc Int : 580 ms ? Atrial-sensed ventricular-paced rhythm with occasional AV dual-paced complexes Abnormal ECG When compared to the previous EKG of V paced rhythm present ECHO 06/2022 Mild LVH. Nml global systolic function with EF 55-60%. Slight septal contraction abnormality probably d/t RV pacing. Thinning and a small portion at the base of the inferior wall and inferior septum. Likely nml variant. Nml RV size and function Nml LA and RA. Pacing wire seen on the right side chambers. No signif valve abn ICD interr 12/2022 DDD -60 No VT/VF No shocks Assessment and Plan Assessment Anesthesia Assessment: Chart Reviewed Final Anesthetic Review Family History of Problems with Anesthesia: No History of Problems with Anesthesia: No Documented by User: Cy Hidalgo MD 02/23/23 17:20 [facility] Past Medical History Medical History Anxiety and depression Asthma Bilateral nephrolithiasis H/O chest pain High cholesterol ICD (implantable cardioverter-defibrillator) in place LBBB (left bundle branch block) NICM (nonischemic cardiomyopathy) Surgical History Surgical History (Updated 02/23/23 @ 15:36 by Chelsey Lazcano, MARK) H/O hydronephrosis H/O lithotripsy H/O: History of bilateral tubal ligation History of endometrial ablation History of hysteroscopy History of lithotripsy Hx of cystoscopy Social History Social History Alcohol intake: never Patient Tobacco Use Status: Former Tobacco user Quit Date: 5 yrs ago Use of substances other than those prescribed or required for medical reasons: No Are you DNR?: No Advance Directives: No Advance Directives Information Provided: Yes Meds Allergies Allergy/AdvReac Type Severity Reaction Status Date / Time No Known Allergies Allergy Unknown Verified 02/23/23 15:36 Home Medications Medication Instructions Recorded Confirmed Last Taken Type albuterol sulfate 90 mcg/actuation 2 puff inhalation Q4H PRN wheezing 02/01/23 02/23/23 01/30/23 History aerosol inhaler atorvastatin 20 mg tablet 20 mg PO BEDTIME 02/01/23 02/23/23 01/31/23 History fluoxetine 20 mg capsule 40 mg PO BEDTIME 02/01/23 02/23/23 01/31/23 History hydroxyzine HCl 25 mg tablet 25 mg PO BID PRN anxiety 02/01/23 02/23/23 01/31/23 History metoprolol succinate 100 mg 100 mg PO DAILY 02/01/23 02/23/23 02/01/23 History tablet,extended release 24 hr sacubitril 49 mg-valsartan 51 mg 1 tab PO BID 02/01/23 02/23/23 02/23/23 06:00 History tablet (Entresto) spironolactone 25 mg tablet 25 mg PO DAILY 02/01/23 02/23/23 02/01/23 History zolpidem 5 mg tablet 5 mg PO BEDTIME PRN Sleep 02/01/23 02/23/23 01/31/23 History Exam Airway Mallampati Class: II TM Dist: >3cm Neck ROM: Full Loose/Missing/Broken Teeth: No Assessment and Plan Assessment Anesthesia Assessment: Anesthesia Plan Discussed Final Anesthetic Review NPO: Yes ASA Class: III Final Preanesthetic Review: No Changes in Pt Med Stat, Meds/Allgs Chart Reviewed, Consent Obtained/Reviewed and Anes Risks/Benef Reviewed Patient Risk: Intermediate Procedure Risk: Low Anesthetic Plan Anesthetic Plan: GA Disposition: Standard PACU
--- NOTE | ~2023-02-23 | FL_ITS ---
EXAMINATION: XR FLUOROSCOPY WITH IMAGES CLINICAL INFORMATION: Right kidney stone. COMPARISON: 02/01/2023. TECHNIQUE: Fluoroscopy Supervised By: Dr. Lukas Estrella. Fluoroscopy Time: 18.7 seconds. Air kerma: 5.85 mGy. Images: 2. FINDINGS: There is a right ureteral stent seen in appropriate positioning. No contrast on these images. FL/FL guidance in OR IMPRESSION: Fluoroscopic guidance for right ureteral stent placement.
[2023-02-23 15:36] VITALS: BMI 32.4
[2023-02-23 15:40] VITALS: BP 124/78; PULSE 70; RESP 16; TEMP 36.7; O2SAT 98
[2023-02-23] MEDS: Lactated Ringers 1,000 ML 50 ML IVCONT (15:43)
--- NOTE | 2023-02-23 16:38 | P.HPSUR_ITS ---
Pre-Procedural Eval Section A Date of Service: 02/23/23 The patient is an INPATIENT: No Changes since office visit: No Cold of Flu in the past 2 weeks, No New Medical Problems, No Changes in Medication and No Patient answered all questions The History & Physical has been completed within 30 days and I have reviewed it.: No Section B Chief Complaint: Calculus of kidney Details of Present Illness: prior right retrograde with stent placement. Here for cystoscopy, right stent removal, right flexible ureteroscopy with laser lithotripsy Relevant Family History (Specify if Yes): No Relevant Social History: None Present Medications: see Short Stay Collaborative assessment Medical History: No relevant PMH History of Previous Operations: Relevant previous surgery/procedure and date(s) Allergies: Allergies Allergy/AdvReac Type Severity Reaction Status Date / Time No Known Allergies Allergy Unknown Verified 02/23/23 15:36 Review of Systems Sugical H&P ROS: Negative: Constitution, Cardiovascular, Respiratory, Neurological, Psychiatric, Hem-Onc, Allergic/Immunologic, Gastrointestinal, Genitourinary, Musculoskeletal, Integumentary, Endocrine and Eyes/Ears/Nos e/Throat Exam Surgical H&P Exam: Normal: HEENT, Normal: Heart, Normal: Lungs, Normal: Extremities, Normal: Abdomen, Normal: Skin and Normal: Neurological Plan Diagnosis/Plan: Unchanged ( cystoscopy, right stent removal, right ureteroscopy with laser lithotripsy) I have reviewed the history and physical and performed a pertinent physical examination on my patient. No changes have occurred unless specified. Time Spent With Patient Time: Total time managing care of this patient today ____ minutes.
--- NOTE | 2023-02-23 17:47 | W.PM.OPN ---
Operative Note Operative Note Date of Service: 02/23/23 Narrative: PreOperative Diagnosis: Right renal stone Post Operative Diagnosis: right renal stone Procedure: - cystoscopy, right stent removal, right retrograde - right ureteroscopy, laser lithotripsy, stone basketing - right stent placement Surgeon: Dr Lukas Estrella Anesthesia: General Indications for procedure: prior presentation with stent placement for right proximal ureteric stone here for completion ureteroscopy Procedure: After informed consent was verified patient was brought to the operating placed in supine position. Anesthesia was administered per protocol. Patient was placed in modified dorsal lithotomy position and prepped and draped in a sterile fashion. Safety pause time-out and side of surgery confirmed. Antibiotics confirmed. 22 Upper Sorbian cystoscope was inserted per urethra. Bladder was normal in its entirety. Both ureteric orifices were in normal position. stent emerging from right ureter. Sensor guidewire placed alongside stent up to level of kidney. Right indwelling ureteric stent removed The rigid cystoscope was removed and the inner cannula of ureteric access sheath was used under fluoroscopy to dilate the ureteric orifice. The digital flexible ureteral scope was placed over the wire. Stone was encountered in mid pole of the kidney. Using a basket the stone was grasped. An attempt made to bring the stone down the ureter. At the pelvic bring the stone was unable to be advanced. Stone basket was open. Flexible Urorisk of removed. Rigid ureteroscopic place. Stone encountered. Stone broken in small pieces using the laser. Basket was then used to remove stone pieces. After stone pieces removed with noted that there was a small split on ureter that appeared to be partial thickness. Sensor wire had remained in place as a safety wire throughout procedure. A 6 Upper Sorbian by Twenty-two cm double-J stent was placed into the renal pelvis and bladder under a combination of fluoroscopy and direct visualization. The symphisis pubis was used as a radiographic marker to release the stent and good coil was seen within the bladder confirming position The bladder was emptied. The patient tolerated the procedure well and was extubated in the operating room, and transferred in stable condition to the recovery area. Pathology: stones Drains: drain is above
[2023-02-23 17:56] VITALS: BP 125/52; PULSE 79; RESP 16; TEMP 36.2; O2SAT 99
[2023-02-23 18:01] VITALS: BP 118/64; PULSE 75; RESP 16; O2SAT 100
[2023-02-23 18:06] VITALS: BP 113/64; PULSE 77; RESP 16; O2SAT 100
[2023-02-23 18:11] VITALS: BP 108/56; PULSE 73; RESP 16; O2SAT 96
[2023-02-23 18:26] VITALS: PULSE 72; RESP 20; TEMP 36.5; O2SAT 97
[2023-03-01 22:03] LABS: Stone Source KIDNEY STONE
== END | disposition home or self-care (01) ==
PROVIDERS: PCP Internal Medicine; Visit Provider Urology
PROC: (CPT 52356; principal; 2023-02-23 16:00)
DX: N20.0 Calculus of kidney (principal); Z87.442 Personal history of urinary calculi; I42.8 Other cardiomyopathies; I44.7 Left bundle-branch block, unspecified; Z95.810 Presence of automatic (implantable) cardiac defibrillator; E78.00 Pure hypercholesterolemia, unspecified; J45.909 Unspecified asthma, uncomplicated; F41.8 Other specified anxiety disorders; Z79.899 Other long term (current) drug therapy; Z98.890 Other specified postprocedural states; Z87.891 Personal history of nicotine dependence
CPT/HCPCS: 52356; 82365; 88300; C1758; C1769; C2617; J1956; J2371; J2405; J3010; Q9967

== ENCOUNTER → 2023-02-23 13:49 | Outpatient (BNV) | payer OTHER, SELFPAY | PROVIDERS: PCP Internal Medicine; Visit Provider Urology | DX: N20.0 Calculus of kidney (principal) | CPT/HCPCS: 52356 ==

== ENCOUNTER 2023-03-10 08:50 | Outpatient (AMB) | payer OTHER, SELFPAY ==
--- NOTE | 2023-03-10 08:54 | A.OFFVIS_ITS ---
Intake Intake Visit Reasons: post op stent removal Intake Note: Patient presents today for a CYSTOSCOPY Procedure: Meds: None Allergies to Antibiotic: No Known Allergies Blood Thinner: None Urinalysis test clear for Cysto? Disposable Uro-G Cystoscope Cannula: Lot: [id number] Exp: 11/18/2024 Turbine Mechanic Required: No Accompanied by: Self / Same As Patient Allergies No Known Allergies Allergy (Unknown, Verified 03/10/23 08:55) Medication List - Last Reconciled 03/10/23 by Lukas Estrella MD albuterol sulfate 90 mcg/actuation 2 puffs inhalation Q4H PRN atorvastatin 20 mg PO BEDTIME fluoxetine 40 mg PO BEDTIME hydroxyzine HCl 25 mg PO BID PRN metoprolol succinate ER 100 mg PO DAILY oxycodone-acetaminophen 5-325 mg 1 tab PO Q4H PRN 7 days phenazopyridine (Pyridium) 100 mg PO TID PRN 4 days phenazopyridine (Pyridium) 100 mg PO TID PRN 4 days sacubitril-valsartan 49-51 mg (Entresto) 1 tab PO BID solifenacin 5 mg PO DAILY 14 days spironolactone 25 mg PO DAILY tamsulosin 0.4 mg PO BEDTIME 14 days tamsulosin 0.4 mg PO BEDTIME 14 days zolpidem 5 mg PO BEDTIME PRN HPI HPI Comments History of Present Illness Details Madeline is a pleasant female. She is a patient of Dr. Parker. She is seen for the following urologic conditions - nephrolithiasis Here for stent removal Nephrolithiasis Stent placed after ER visit for right flank pain Imaging - 02/05 ?Right-sided nephrolithiasis is present with at least 4 nonobstructing intrarenal calculi present the largest measuring 6 mm. Stone burden in size appears increased when compared to 2019 Intervention - 03/08 right ureteroscopy Composition - 03/08 calcium oxalate monohydrate 80% Therapeutic plan - 3 month follow-up imaging with [facility] Medical History Anxiety and depression Asthma Bilateral nephrolithiasis H/O chest pain High cholesterol ICD (implantable cardioverter-defibrillator) in place LBBB (left bundle branch block) NICM (nonischemic cardiomyopathy) Surgical History (Updated 02/23/23 @ 15:36 by Chelsey Lazcano RN) H/O hydronephrosis H/O lithotripsy H/O: History of bilateral tubal ligation History of endometrial ablation History of hysteroscopy History of lithotripsy Hx of cystoscopy Social History Alcohol intake: never Patient Tobacco Use Status: Former Tobacco user Quit Date: 5 yrs ago Review of Systems Const Denies chills and Denies fever(s) Card Reports no additional complaints and Denies syncope Resp Denies cough GI Denies abdominal pain and Denies heartburn Reports as per HPI and Denies change in libido Neuro Denies syncope Psych Denies change in libido Endo Denies change in libido Physical Exam Const General: cooperative, healthy appearing, comfortable and no acute distress Orientation/consciousness: patient oriented x3 HEENT Face and sinus: Yes normal facial exam Mouth: moist mucous membranes Neck Neck: Yes normal visual inspection, Yes full ROM and Yes trachea midline Chest Chest palpation & inspection: normal inspection of the chest Resp Effort & Inspection: normal respiratory effort, able to speak in complete sentences and no respiratory distress GI Inspection: Yes normal to inspection Back/Spine/Pelvis Cervical Spine: normal cervical lordosis Thoracic/Lumbar Spine: thoracic and lumbar spine normal to inspection Skin General skin exam: no rashes or lesions noted Neuro General: patient oriented x3, gait normal, tone normal and moves all extremities Extrem General: Yes normal to inspection and Yes capillary refill normal Office Procedures Cystoscopy Consent Discussed risk and benefit or proposed procedure with the patient. Information consent for procedure given to the patient. Discussed technical aspects, risks, benefits and alternatives in full. Addressed all of the patient's questions and concerns regarding the procedure. The patient demonstrated knowledge and understanding. They wish to proceed with this procedure. Preparation The patient was prepped in the usual manner. A acidizer helper was present and in the room. Genitalia was prepped with betadine solution in a sterile manner. Lidocaine Jelly 2% was placed into the urethra and 16Fr flexible Olympus cystoscope was inserted into the meatus after adequate lubrication. Procedure A well lubricated 16 Armenian cystoscope was placed No abnormality noted of urethra during placement Indwelling stent seen within bladder emerging from right ureteric orifices The stent was grasped with a 3 prong grasper and removed without difficulty The patient tolerated the procedure well [id number] with stent removal DISPOSABLE SCOPE URO-G FLEXIBLE SCOPE Procedure code (CPT) selection complete Office Meds lidocaine HCl Performing Provider: Lukas Estrella MD Administered by: Lukas Estrella MD on 03/10/23 09:38 Dose Route Admin Location Lot Number Expiration Date ND Direct Support Professional Caregiver 10 mL intra-urethral Results AMB Urinalysis, Automated UA Leukoctes 125 Cynthia/uL Last Edit by ALEXANDREA Valverde on 03/10/23 09:03 2+ Rk Ly 03/10/23 09:03 UA Nitrite Negative Last Edit by ALEXANDREA Valverde on 03/10/23 09:03 UA Urobilinogen 0.2 mg/dL Last Edit by ALEXANDREA Valverde on 03/10/23 09:0 3 UA Protein 100 mg/dL Last Edit by ALEXANDREA Valverde on 03/10/23 09:03 2+ kR Ly 03/10/23 09:03 UA pH 6.0 Last Edit by ALEXANDREA Valverde on 03/10/23 09:03 UA Blood 200 [place]/uL Last Edit by ALEXANDREA Valverde on 03/10/23 09:03 3+ Rk Ly 03/10/23 09:03 UA Specific [place] 1.025 Last Edit by ALEXANDREA Valverde on 03/10/23 09: 03 UA Ketone Negative Last Edit by ALEXANDREA Valverde on 03/10/23 09:03 UA Bilirubin 0 mg/dL Last Edit by ALEXANDREA Valverde on 03/10/23 09:03 UA Glucose 0 mg/dL Last Edit by ALEXANDREA Valverde on 03/10/23 09:03 Results Reviewed Results Reviewed: Laboratory Last Values Urine pH (Auto) 6.0 03/10/23 08:54 Specific [place] (Auto) 1.025 03/10/23 08:54 Urine Protein (Auto) 100 mg/dL 03/10/23 08:54 Glucose (UA)(Auto) 0 mg/dL 03/10/23 08:54 Urine Ketones (Auto) Negative 03/10/23 08:54 Urine Blood (Auto) 200 [place]/uL 03/10/23 08:54 Urine Nitrite (Auto) Negative 03/10/23 08:54 Urine Bilirubin (Auto) 0 mg/dL 03/10/23 08:54 Urine Urobilinogen (Auto) 0.2 mg/dL 03/10/23 08:54 Leukocyte Esterase (Auto) 125 Cynthia/uL 03/10/23 08:54 Assessment & Plan Assessment & Plan (1) Bilateral nephrolithiasis: Code(s): N20.0 - Calculus of kidney Plan Three month follow-up imaging and [facility] Orders: Orders US renal BI 3 Months N20.0 - Calculus of kidney AMB Cystoscopy Today N20.0 - Calculus of kidney AMB Urinalysis Automated Today Z13.9 - Encounter for screening, unspecified Medications: New pyridoxine (vitamin B6) 50 mg PO DAILY 90 days 90 tabs 1RF N20.0 - Calculus of kidney Patient Instructions: Imaging studies, laboratory and physical exam results were discussed and reviewed in detail. No major barriers to patient understanding were identified. An opportunity to ask questions regarding the treatment plan was provided. All questions were answered. The patient expressed understanding and agreement with the above treatment plan. The patient is aware they should contact our office by phone for worsening of their current condition or the appearance of new urologic symptoms. Compliance is encouraged with any medications and followup testing that is ordered. It is a privilege to participate in the urologic care of your patient. If you have any questions or concerns regarding treatment for the above conditions, or other urologic issues, please do not hesitate to contact me. The office telephone contact is [phone]. This note is constructed using voice recognition software. While every effort has been made to ensure accuracy surgical instrument maker errors may have been included. Yours sincerely, Dr Lukas Estrella MD, [facility] - Urology Providers of Expert, Compassionate Care for the Genitourinary System Coding Level of Care Code Est Pt Level 3 (04941) Diagnoses Bilateral nephrolithiasis N20.0 CPT Codes Cystoscopy - CPT: 79310-Sbrqnqmefn with stent removal ([id number]) Cystoscopy - CPT: DISPOSABLE SCOPE URO-G FLEXIBLE SCOPE ([id number])
== END 2023-03-10 09:39 | disposition home or self-care (01) ==
LOC: HO.HUSH 08:50
PROVIDERS: PCP Internal Medicine; Visit Provider Urology
DX: N20.0 Calculus of kidney (principal); Z13.9 Encounter for screening, unspecified
CPT/HCPCS: 52310; 99213

== ENCOUNTER → 2023-03-10 08:50 | Outpatient (BNVA) | payer OTHER, SELFPAY | PROVIDERS: PCP Internal Medicine; Visit Provider Urology | DX: Z48.816 Encounter for surgical aftercare following surgery on the genitourinary system (principal) | CPT/HCPCS: 52310; 81003; 99212; C1747 ==

== ENCOUNTER 2023-05-22 22:18 | Emergency (ER) | payer OTHER, SELFPAY ==
--- NOTE | ~2023-05-22 | XR_ITS ---
EXAMINATION: XR SHOULDER, LEFT CLINICAL INFORMATION: Fall COMPARISON: None available. TECHNIQUE: Three views of the left shoulder. FINDINGS: Left AICD generator overlies portions of the shoulder obscuring fine bony detail. Where visualized, the humeral head appears be well-seated in the glenoid fossa. I do not appreciate any acute fracture or dislocation on these obliquities. Visualized left upper chest otherwise unremarkable XR/XR shoulder LT min 2V IMPRESSION: No acute fracture or dislocation. AICD generator overlies portions of the left shoulder.
--- NOTE | ~2023-05-22 | CT_ITS ---
EXAMINATION: CT HEAD WITHOUT CONTRAST CLINICAL INFORMATION: Fall. Loss of consciousness. COMPARISON: None available. TECHNIQUE: Contiguous axial imaging was performed from the skull base to vertex without intravenous administration of contrast. This CT examination was performed using dose optimization techniques as appropriate, variously including the following: *Automated exposure control *Adjustment of mA and/or kV according to patient size (this includes techniques or standardized protocols for targeted exams where dose is matched to indication/reason for exam; i.e. extremities or head) *Use of iterative reconstruction technique DLP: 633 mGy-cm FINDINGS: The lateral, third and fourth ventricles are normally outlined. The cortical sulci and basal cisterns are normally outlined as well. There is no acute territorial defect, hemorrhage or midline shift. The extra-axial spaces are unremarkable. Calvarium: Intact. Maxillofacial sinuses and mastoids: Clear as visualized. CT/CT head/brain wo IV con IMPRESSION: No acute intracranial abnormality.
--- NOTE | ~2023-05-22 | XR_ITS ---
EXAMINATION: XR KNEE, RIGHT CLINICAL INFORMATION: Fall COMPARISON: None available. TECHNIQUE: Two views of the right knee. FINDINGS: No significant knee joint effusion. Mild prepatellar soft tissue swelling. Mild degenerative changes are seen with loss of joint space more so in the lateral compartment. No underlying acute fracture or dislocation. No bony destructive lesions or periosteal reaction. XR/XR knee RT 2V IMPRESSION: Mild prepatellar soft tissue swelling. Mild degenerative changes but no acute fracture or dislocation.
[2023-05-22 22:24] VITALS: BP 137/72; PULSE 78; RESP 20; TEMP 36.4; O2SAT 98; BMI 31.8
--- NOTE | 2023-05-23 01:15 | ED_ITS ---
HPI - Fall General Chief Complaint: Fall Stated Complaint: fell hit head and knee Time Seen by Provider: 05/23/23 01:14 Source: patient and other (Boyfriend) Mode of arrival: ambulatory Limitations: no limitations History of Present Illness HPI Narrative: 58-year-old history of cardiomyopathy with implanted AICD, anxiety, depression, asthma, kidney stones, high cholesterol who presents emergency department for ev aluation of injuries from fall. Patient states she was stepping over a dog gate when she tripped and fell. She states that she struck her left side of her head and left shoulder on the floor. She also struck her right knee. She believes that she lost consciousness for seconds. Her boyfriend found her awake lying on the floor. Patient was able to get up and was brought to emergency department by her boyfriend. In the emergency department patient was complaining of left- sided headache, left shoulder pain and right knee pain. She denied nausea, vomiting, numbness, weakness, loss of bowel or bladder control. Related Data Home Medications Medication Instructions Recorded Confirmed albuterol sulfate 90 mcg/actuation 2 puff inhalation Q4H PRN wheezing 02/01/23 03/10/23 aerosol inhaler atorvastatin 20 mg tablet 20 mg PO BEDTIME 02/01/23 03/10/23 fluoxetine 20 mg capsule 40 mg PO BEDTIME 02/01/23 03/10/23 hydroxyzine HCl 25 mg tablet 25 mg PO BID PRN anxiety 02/01/23 03/10/23 metoprolol succinate 100 mg 100 mg PO DAILY 02/01/23 03/10/23 tablet,extended release 24 hr sacubitril 49 mg-valsartan 51 mg 1 tab PO BID 02/01/23 03/10/23 tablet (Entresto) spironolactone 25 mg tablet 25 mg PO DAILY 02/01/23 03/10/23 zolpidem 5 mg tablet 5 mg PO BEDTIME PRN Sleep 02/01/23 03/10/23 Previous Rx's Medication Instructions Recorded phenazopyridine 100 mg tablet 100 mg PO TID PRN Spasm 4 days #12 02/01/23 (Pyridium) tabs tamsulosin 0.4 mg capsule 0.4 mg PO BEDTIME 14 days #14 caps 02/01/23 oxycodone-acetaminophen 5 mg-325 1 tab PO Q4H PRN pain (scale score 02/23/23 mg tablet 4-6) 7 days #14 tabs phenazopyridine 100 mg tablet 100 mg PO TID PRN Spasm 4 days #12 02/23/23 (Pyridium) tabs solifenacin 5 mg tablet 5 mg PO DAILY spasm 14 days #14 02/23/23 tabs tamsulosin 0.4 mg capsule 0.4 mg PO BEDTIME 14 days #14 caps 02/23/23 pyridoxine (vitamin B6) 50 mg 50 mg PO DAILY 90 days #90 tabs 03/10/23 tablet acetaminophen 500 mg tablet 1,000 mg (2 x 500 mg) PO Q6H PRN 05/23/23 (Tylenol Extra Strength) fever or pain #20 tabs ibuprofen 400 mg tablet 400 mg PO TID PRN fever or pain 05/23/23 #30 tabs morphine 15 mg immediate release 15 mg PO Q4-6H PRN pain #10 tabs 05/23/23 tablet Allergies Allergy/AdvReac Type Severity Reaction Status Date / Time No Known Allergies Allergy Unknown Verified 03/10/23 08:55 Review of Systems Review of Systems: Yes all other systems are reviewed and are negative [facility] Past Medical History Medical History NICM (nonischemic cardiomyopathy) ICD (implantable cardioverter-defibrillator) in place LBBB (left bundle branch block) Bilateral nephrolithiasis H/O chest pain Anxiety and depression Asthma High cholesterol Surgical History Hx of cystoscopy H/O: History of bilateral tubal ligation History of endometrial ablation History of hysteroscopy History of lithotripsy H/O lithotripsy H/O hydronephrosis Social History Social History Alcohol intake: never Patient Tobacco Use Status: Former Tobacco user Quit Date: 5 yrs ago Advance Directives: No Advance Directives Information Provided: Yes Physical Exam Vital Signs: Vital Signs: Last Vital Signs Temp 97.6 F 05/22/23 22:24 Pulse 78 05/22/23 22:24 Resp 20 05/22/23 22:24 BP 137/72 05/22/23 22:24 Pulse Ox 98 05/22/23 22:24 O2 Del Method Room Air 05/22/23 22:24 BMI result Body Mass Index 31.8 Vital signs were normal Exam: General: Awake, alert in no distress Head: Normocephalic, tenderness palpation of the left forehead, no hematoma or abrasion noted EENT: PERRL, Lids normal, sclera normal, conjunctiva normal, nose normal , ears normal, throat without erythema or exudates Neck: Supple, no adenopathy, no trachea midline or C-spine tenderness Lung: breath sounds symmetric, no wheezing, rales or rhonchi Chest: symmetric movement, nontender Heart: regular rate and rhythm, normal S1, S2 no murmurs or rubs Abdomen: soft, non-tender, nondistended, normal bowel sounds Back: no vertebral tenderness, no CVAT Extremities: Tenderness palpation of the left AC joint, limited range of motion secondary to pain. Tenderness palpation over the left knee with ecchymosis and a small abrasion. Patient has full range of motion of the knee. Neuro: Awake, alert, oriented, normal speech, cranial nerves intact, moves all extremities symmetrically Psych: Pleasant, cooperative Medical Decision Making Medical Decision Making MDM Narrative: 58-year-old history of cardiomyopathy with implanted AICD, anxiety, depression, asthma, kidney stones, high cholesterol who presents emergency department for evaluation of injuries from fall. Vital signs were normal. Exam did reveal tenderness palpation of her left forehead/scalp area with no hematoma, tenderness palpation of the left AC joint and tenderness with ecchymosis and abrasion to the right knee. Following evaluation was ordered: CT of the head, x-ray of the left shoulder and right knee. 01:43 CT scan of the patient's head revealed no acute fractures CT scan of the patient's left shoulder and right knee revealed no acute fractures on my interpretation as well as the radiologist. Patient's finding is consistent with a closed head injury with loss of consciousness and concussion, left shoulder AC joint separation and right knee contusion. Patient was treated with Tylenol 975 mg orally and morphine 4 mg orally. Patient was prescribed ibuprofen 400 mg q.6 hours, Tylenol 1000 mg q.6 hours and morphine 15 mg every 4-6 hours as needed for pain not relieved by Motrin and Tylenol. Patient was given a sling for her left shoulder. She was given printed and verbal instructions and discharged home Differential Diagnosis Differential Diagnoses: The differential diagnosis associated with the presentation includes Differential diagnosis includes was not limited to skull fracture, intracranial bleed, concussion, left shoulder contusion, left shoulder fracture, left AC joint separation, right knee fracture, right knee contusion Admission/Observation Consideration of admission/observation: Escalation of care including admission/observation considered Independent Interpretation I performed an independent interpretation of an: Plain X-Ray Interpretation: My independent interpretation of the patient's two view right knee x-ray is as follows: No acute fracture My independent interpretation of the patient's three view left shoulder x-ray is as follows: No acute fracture seen, AICD noted Radiology Impression Discussion of test interpretation with radiology: I have reviewed the radiologist's reading. Radiologist Impression: CT head/brain wo IV con IMPRESSION: No acute intracranial abnormality. Dictated By: Yandel Soto XR shoulder LT min 2V IMPRESSION: No acute fracture or dislocation. AICD generator overlies portions of the left shoulder. Dictated By: Pramod Sandra MD XR knee RT 2V IMPRESSION: Mild prepatellar soft tissue swelling. Mild degenerative changes but no acute fracture or dislocation. Dictated By: Pramod Sandra MD Independent Historian Clinical information obtained from an independent historian. History obtained from or confirmed by: Other (Boyfriend) External Record Review External record reviewed: Office record Prescription Management I considered prescription management with: Pain Medication Chronic Conditions Patient?s care impacted by: Other (High cholesterol, cardiomyopathy, asthma) Discharge Plan Discharge Clinical Impression: Fall Qualifiers: Encounter type: initial encounter Qualified Code(s): W19.XXXA - Unspecified fall, initial encounter Closed head injury Qualifiers: Encounter type: initial encounter Qualified Code(s): S09.90XA - Unspecified injury of head, initial encounter Separation of left acromioclavicular joint Qualifiers: Encounter type: initial encounter Qualified Code(s): S43.102A - Unspecified dislocation of left acromioclavicular joint, initial encounter Contusion of knee, right Qualifiers: Encounter type: initial encounter Qualified Code(s): S80.01XA - Contusion of right knee, initial encounter Patient Disposition: Home, Self-Care Instructions: Acromioclavicular Separation (ED), Head Injury (ED), Contusion in Adults (ED) Additional Instructions: The CT scan of your head revealed no skull fracture and no bleeding which is reassuring. The x-ray of your right knee revealed no broken bones The x-ray of your left shoulder revealed no broken bones. However, based on your exam, you have tenderness over the acromioclavicular ( AC Joint) and this is consistent with a shoulder separation. AC shoulder separation should heal by itself, wear the sling for 3-7 days as needed for your comfort. Apply ice for 15 minute 4 to 6 times a day to your left shoulder and right knee to help reduce the pain and swelling. Take ibuprofen 400 mg pills, 2 pills every 6 hours as needed for pain. Take Tylenol (acetaminophen) 2 pills every 6 hours as needed for pain. For pain not relieved by ibuprofen or Tylenol take morphine 15 mg pills, 1 pill every 6 hours as needed for pain. This medication will make you sleepy, do not drive or work while taking this medication. Morphine is a narcotic medication and can be addicting. If you are concerned about addiction you can ask the pharmacist for less pills or do not get this prescription filled. Follow-up with your doctor in 2 days. Please return to the emergency department if your symptoms get worse or if you develop any symptoms that are concerning to you. Prescriptions: New acetaminophen [Tylenol Extra Strength] 500 mg tablet 1,000 mg PO Q6H PRN (Reason: fever or pain) Qty: 20 0RF ibuprofen 400 mg tablet 400 mg PO TID PRN (Reason: fever or pain) Qty: 30 0RF morphine 15 mg tablet 15 mg PO Q4-6H PRN (Reason: pain) Qty: 10 0RF Rx Instructions: The patient may ask for partial fill; Partial Fill upon patient request. No Action atorvastatin 20 mg tablet 20 mg PO BEDTIME metoprolol succinate 100 mg tablet extended release 24 hr 100 mg PO DAILY spironolactone 25 mg tablet 25 mg PO DAILY hydroxyzine HCl 25 mg tablet 25 mg PO BID PRN (Reason: anxiety) zolpidem 5 mg tablet 5 mg PO BEDTIME PRN (Reason: Sleep) albuterol sulfate 90 mcg/actuation HFA aerosol inhaler 2 puff inhalation Q4H PRN (Reason: wheezing) fluoxetine 20 mg capsule 40 mg PO BEDTIME Entresto 49-51 mg tablet 1 tab PO BID tamsulosin 0.4 mg capsule 0.4 mg PO BEDTIME 14 Days Qty: 14 0RF phenazopyridine [Pyridium] 100 mg tablet 100 mg PO TID PRN (Reason: Spasm) 4 Days Qty: 12 0RF phenazopyridine [Pyridium] 100 mg tablet 100 mg PO TID PRN (Reason: Spasm) 4 Days Qty: 12 0RF oxycodone-acetaminophen 5-325 mg tablet 1 tab PO Q4H PRN (Reason: pain (scale score 4-6)) 7 Days Qty: 14 0RF Rx Instructions: Partial Fill upon patient request. tamsulosin 0.4 mg capsule 0.4 mg PO BEDTIME 14 Days Qty: 14 0RF solifenacin 5 mg tablet 5 mg PO DAILY 14 Days Qty: 14 0RF Rx Instructions: take 1 tab daily for [address] pyridoxine (vitamin B6) 50 mg tablet 50 mg PO DAILY 90 Days Qty: 90 1RF
[2023-05-23] MEDS: Morphine Sulfate Immed Release 15 MG TABLET PO (01:54)
[2023-05-23] MEDS: Acetaminophen 325 MG TABLET 975 MG PO (01:54)
== END 2023-05-23 02:38 | disposition home or self-care (01) ==
PROVIDERS: Emergency Provider Emergency Medicine Emergency Medical Services; PCP Internal Medicine
DX: S09.90XA Unspecified injury of head, initial encounter (principal); S43.102A Unspecified dislocation of left acromioclavicular joint, initial encounter; S80.01XA Contusion of right knee, initial encounter; W01.198A Fall on same level from slipping, tripping and stumbling with subsequent striking against other object, initial encounter; E78.00 Pure hypercholesterolemia, unspecified; I44.7 Left bundle-branch block, unspecified; Z95.810 Presence of automatic (implantable) cardiac defibrillator; Z79.02 Long term (current) use of antithrombotics/antiplatelets; Z79.899 Other long term (current) drug therapy; Y93.89 Activity, other specified; Y92.019 Unspecified place in single-family (private) house as the place of occurrence of the external cause; Y99.9 Unspecified external cause status
CPT/HCPCS: 70450; 73030; 73560; 99284